=== PATIENT | female | born 1970 | race Caucasian/White ===

== ENCOUNTER 2021-05-03 12:56 | Emergency (ER) | payer OTHER, SELFPAY ==
[2021-05-03 13:00] VITALS: BP 145/74; PULSE 58; RESP 20; TEMP 36.6; O2SAT 96
--- NOTE | 2021-05-03 13:12 | ECG_ITS ---
Measurements Intervals [place] Rate: 46 P: 66 AR: 153 QRS: 41 QRSD: 90 T: 17 QT: 415 QTc: 365 Interpretive Statements SINUS BRADYCARDIA BORDERLINE ST ABNORMALITY- ANTEROLAT/INF LEADS ABNORMAL ECG Electronically Signed On 05-03-2021 21:20:03 CDT by Taco Wall D.O.
[2021-05-03] MEDS: SODIUM CHLORIDE 0.9% IV 1,000 ML 999 ML IV CONT (13:28)
[2021-05-03 13:39] VITALS: BP 127/68; PULSE 52; RESP 20; O2SAT 98
[2021-05-03 13:41] LABS: Basophils Absolute Auto 0.05 K/mm3 (0.00-0.10); Basophils Percent Auto 0.4 % (0.0-1.0); Eosinophils Absolute Auto 0.13 K/mm3 (0.02-0.50); Hematocrit 42.4 % (35.0-49.0); Hemoglobin 14.6 g/dL (12.0-15.0); Immature Granulocyte Absolute 0.05 K/mm3 (0.00-0.00); Immature Granulocyte Percent A 0.4 % (0.0-0.0); Lymphocytes Absolute Auto 1.33 K/mm3 (1.10-4.50); Lymphocytes Percent Auto 10.7 % (18.0-42.0); Mean Corpuscular HGB Conc 34.4 g/dL (32.0-36.0); Mean Corpuscular Hemoglobin 29.4 pg (27.0-31.0); Mean Corpuscular Volume 85.5 fL (78.0-102.0); Mean Platelet Volume 9.7 fl (9.2-11.8); Monocytes Percent Auto 4.8 % (2.0-11.0); Neutrophils Absolute Auto 10.3 K/mm3 (1.7-7.2); Neutrophils Percent Auto 82.7 % (50.0-70.0); Platelet Count Result 309 K/mm3 (150-420); Red Blood Count 4.96 M/mm3 (4.20-5.40); Red Cell Distribution Width 13.5 % (11.6-14.4); White Blood Count 12.5 K/mm3 (4.8-10.8)
[2021-05-03 13:46] LABS: Add Urine Microscopic? NO; Appearance Urine Clear (Clear); Bilirubin Urine Negative (Negative); Blood Urine Negative (Negative); Color Urine Light Yellow (Yellow); Glucose Urine UA Negative (Negative); Ketones Urine Negative (Negative); Leukocyte Esterase Ur Negative (Negative); Nitrate Urine Negative (Negative); Protein Urine Negative (Negative); Specific Grav Ur <= 1.005 (1.010-1.020); Urobilinogen Urine 0.2 mg/dL (0.2-1.0); pH Urine 6.5 (5.0-8.0)
[2021-05-03 13:49] LABS: Amphetamine Screen Urine Negative (Negative); Barbiturate Screen Urine Negative (Negative); Benzodiazepines Screen Urine Negative (Negative); Cannabinoid Screen Urine Negative (Negative); Cocaine Screen Urine Negative (Negative); Methadone Screen Urine Negative (Negative); Opiate Screen Urine Negative (Negative); Phencyclidine Screen Urine Negative (Negative)
[2021-05-03 13:56] LABS: Lactic Acid Reflex 1.1 mmol/L (0.4-2.0)
[2021-05-03 13:58] LABS: Alanine Aminotransferase 28 U/L (14-59); Albumin Level 3.6 g/dL (3.4-5.0); Alkaline Phosphatase 70 U/L (46-116); Anion Gap 10 mmol/L (8-16); Aspartate Amino Transferase 16 U/L (15-37); Bilirubin,Total 0.2 mg/dL (0.00-1.00); Blood Urea Nitrogen 7 mg/dL (7-18); Calcium 10.4 mg/dL (8.5-10.1); Carbon Dioxide 26 mmol/L (21-32); Chloride 108 mmol/L (98-108); Creatine Kinase 116 U/L (26-192); Estimated CRCL calculation 64 ml/min; Estimated Glomerular Filt Rate > 60; Glucose 110 mg/dL (70-99); Osmolality Calculated 297 mOsm/kg (285-295); Potassium 3.1 mmol/L (3.5-5.1); Sodium 144 mmol/L (136-145); Thyroid Stimulating Hormone 1.15 uIU/mL (0.36-3.74); Total Protein 6.8 g/dL (6.4-8.2); Troponin I 4.3 ng/L (0.00-60.4)
[2021-05-03 14:04] LABS: SARS-CoV-2 Ag Negative (Negative)
--- NOTE | 2021-05-03 14:05 | ED.DIZZY ---
HPI - Dizziness General Chief Complaint: Dizziness Stated Complaint: Ambulance Source: patient Mode of arrival: EMS Limitations: no limitations History of Present Illness MD elicited complaint: lightheadedness Onset (ago): hour(s) Timing: sudden onset Severity: mild Description: lightheadedness Context: anxiety History of similar symptoms: No Exacerbating factors: nothing Relieving factors: remaining still and rehydration Associated symptoms: denies other symptoms Related Data Home Medications Medication Instructions Recorded Confirmed levothyroxine 150 mcg PO DAILY 05/03/21 05/03/21 Allergies Allergy/AdvReac Type Severity Reaction Status Date / Time No Known Allergies Allergy Verified 05/03/21 13:18 Review of Systems Review of Systems: All systems reviewed & are unremarkable except as noted in HPI and below PMFSH Past Medical History Medical History Hypothyroidism (acquired) Exam Const: General: no acute distress Orientation/consciousness: patient oriented x3 HENMT: Head: normal to inspection Eyes: Conjunctivae: conjunctivae normal Pupils: Equal, round and reactive pupils present Neck: Neck: normal visual inspection, no lymphadenopathy and no meningeal signs Chest: Chest palpation & inspection: normal inspection of the chest Resp: Effort & Inspection: normal respiratory effort Auscultation: clear to auscultation bilaterally Cardio: Rate: regular rate and bradycardic Rhythm: regular rhythm GI: Auscultation: normal bowel sounds : General: Yes no CVA tenderness Back/Spine/Pelvis: Back: no CVA tenderness Neuro: General: patient oriented x3 Extrem: General: normal to inspection and no pedal edema Psych: Mental Status: mental status grossly normal Affect: normal affect Course Course Emergency Course: patient after reassessment feels improved patient received IV hydration and her potassium was 3.1 received 40 mEq of p.o. potassium and will print prescription for p.o. potassium, her labs reviewed with patient which were normal except the potassium level and EKG was reviewed patient with a history of bradycardia, she says her heart rate usually runs in the 50s or 60s. COVID was reviewed which was negative. Vital Signs Vital signs: Vital Signs Temperature 36.6 C 05/03/21 13:00 Pulse Rate 58 L 05/03/21 13:00 Respiratory Rate 20 05/03/21 13:00 Blood Pressure 145/74 H 05/03/21 13:00 Pulse Oximetry 96 05/03/21 13:00 Temperature 36.6 C 05/03/21 13:00 Pulse Rate 52 L 05/03/21 13:39 Respiratory Rate 20 05/03/21 13:39 Blood Pressure 127/68 05/03/21 13:39 Pulse Oximetry 98 05/03/21 13:39 MDM - Dizziness Lab Data Result diagrams: 05/03/21 13:28 05/03/21 13:28 Labs: Lab Results 05/03/21 05/03/21 05/03/21 Range/Units 13:12 13:14 13:28 WBC 12.5 H (4.8-10.8) K/mm3 RBC 4.96 (4.20-5.40) M/mm3 Hgb 14.6 (12.0-15.0) g/dL Hct 42.4 (35.0-49.0) % MCV 85.5 (78.0-102.0) fL MCH 29.4 (27.0-31.0) pg MCHC 34.4 (32.0-36.0) g/dL RDW 13.5 (11.6-14.4) % Plt Count 309 (150-420) K/mm3 MPV 9.7 (9.2-11.8) fl Immature Gran % (Auto) 0.4 H (0.0-0.0) % Neut % (Auto) 82.7 H (50.0-70.0) % Lymph % (Auto) 10.7 L (18.0-42.0) % [place] % (Auto) 4.8 (2.0-11.0) % Eos % (Auto) 1.0 (1.0-6.0) % Baso % (Auto) 0.4 (0.0-1.0) % Lymph # (Auto) 1.33 (1.10-4.50) K/mm3 [place] # (Auto) 0.60 (0.10-0.90) K/mm3 Eos # (Auto) 0.13 (0.02-0.50) K/mm3 Baso # (Auto) 0.05 (0.00-0.10) K/mm3 Abs Immat Gran (auto) 0.05 H (0.00-0.00) K/mm3 Absolute Neuts (auto) 10.3 H (1.7-7.2) K/mm3 Absolute Nucleated RBC 0.00 (0.00-0.00) K/mm3 Nucleated RBC % 0.0 (0-0.0) % Sodium (136-145) mmol/L Potassium (3.5-5.1) mmol/L Chloride (98-108) mmol/L Carbon Dioxide (21-32) mmol/L Anion Gap (8-16)
[2021-05-03] MEDS: POTASSIUM CHLORIDE 20 MEQ TABLET 40 MEQ PO (14:10)
[2021-05-03 14:14] VITALS: BP 126/72; PULSE 62; RESP 20; TEMP 36.7; O2SAT 98
== END 2021-05-03 14:20 | disposition home or self-care (01) ==
PROVIDERS: Emergency Provider Emergency Medicine
DX: R42 Dizziness and giddiness (principal); E87.6 Hypokalemia; Z20.822 Contact with and (suspected) exposure to COVID-19; E03.9 Hypothyroidism, unspecified
CPT/HCPCS: 36415; 80053; 80307; 81003; 82550; 83605; 84443; 84484; 85025; 87426; 93005; 96360; 99283; A9270; C9803; J7030